=== PATIENT | female | born 1965 | race Caucasian/White ===

== ENCOUNTER 2020-05-02 12:47 | Observation (INO) | payer MEDICARE, SELFPAY ==
[2020-05-02] MEDS ORDERED: Nitroglycerin 50 MG/250 ML BOT 0 ML ONE ×2 (13:07→13:29)
[2020-05-02 13:24] LABS: #Eosinphils 0.1 thou/uL (0.0-0.7); #Lymphocytes 1.2 thou/uL (1.20-3.40); #Monocytes 0.3 thou/uL (0.11-0.59); #Neutrophils 7.4 thou/uL (1.40-6.50); %Basophils 0.3 % (0.0-1.0); %Eosinophils 0.6 % (0.0-10.0); %Lymphocytes 13.7 % (21.0-51.0); %Monocytes 3.8 % (0.0-10.0); %Neutrophils 81.7 % (42.0-75.0); Hemoglobin 12.4 g/dL (12.0-16.0); Mean Corpuscular HGB CONC 32.7 g/dL (32.0-36.0); Mean Corpuscular Hemoglobin 31.1 pg (27.0-31.0); Mean Corpuscular Volume 95.2 fL (78.0-98.0); Mean Platelet Volume 8.4 fL (7.4-10.4); Platelet Count 230 thou/uL (130-400); RBC Distribution Width 14.8 % (11.5-14.5); Red Blood Cell (RBC) Count 3.98 mill/uL (4.20-5.40); White Blood Cell (WBC) Count 9.1 thou/uL (4.8-10.8)
--- NOTE | 2020-05-02 13:29 | RAD ---
Exam: Chest one view HISTORY:Chest pain, radiating to left arm. Comparison: None FINDINGS: Cardiac silhouette:Cardiomegaly. Aorta: Unremarkable Pulmonary vessels: Normal Costophrenic angles: Clear LUNGS: No masses or consolidation. Lungs are hyperinflated. Chronic lung parenchymal changes are susp ected. Pneumothorax: None Osseous abnormalities: None IMPRESSION: 1. Hyperinflation with what are presumed to be chronic lung parenchymal changes. Additional imaging i f clinically warranted.
[2020-05-02] MEDS ORDERED: Morphine 4 MG/ML VIAL ONE (13:41)
[2020-05-02 13:52] LABS: ALT (SGPT) 9 U/L (8-55); AST (SGOT) 16 U/L (5-34); Albumin 4.1 g/dL (3.5-5.0); Alkaline Phosphatase 119 U/L (40-110); Anion Gap 19 mmol/L (10-20); BUN (Urea Nitrogen) 11 mg/dL (9.8-20.1); Bilirubin, Total 0.3 mg/dL (0.2-1.2); Calc. Creatinine Clearance 0 mL/min (70-130); Calcium 9.6 mg/dL (7.8-10.44); Carbon Dioxide 17 mmol/L (22-29); Chloride 104 mmol/L (98-107); Estimated GFR-MDRD 86; Globulin 3.5 g/dL (2.4-3.5); Glucose 102 mg/dL (70-105); Lipase 10 U/L (8-78); Potassium 4.9 mmol/L (3.5-5.1); Protein, Total 7.6 g/dL (6.0-8.3); Sodium 135 mmol/L (136-145)
[2020-05-02] MEDS ORDERED: Metoclopramide HCl 10 MG/2 ML VIAL ONE (15:02)
[2020-05-02] MEDS ORDERED: diphenhydrAMINE 50 MG/ML VIAL ONE (15:02)
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
[2020-05-02] MEDS ORDERED: Nitroglycerin 0.4 MG TAB 1 EACH ONE (16:30)
[2020-05-02] MEDS ORDERED: Ketorolac Tromethamine 30 MG/ML VIAL ONE (16:30)
[2020-05-02] MEDS ORDERED: Senokot S 8.6-50 MG TAB PO PRN (16:50)
[2020-05-02] MEDS ORDERED: Ondansetron ODT 4 MG TAB PO PRN (16:50)
[2020-05-02] MEDS ORDERED: Acetaminophen 325 MG TAB PO PRN (16:50)
[2020-05-02] MEDS ORDERED: Ondansetron PF 4 MG/2 ML Vial IVP PRN (16:50)
[2020-05-02] MEDS ORDERED: Calcium Carbonate 500 MG ChewTAB PO PRN (16:50)
[2020-05-02] MEDS ORDERED: HYDROcodone/Acetaminophen 10/325 mg Tablet PO PRN (16:50)
[2020-05-02] MEDS ORDERED: Nitroglycerin 0.4 MG TAB (25 Tab Bottle) SL PRN (16:53)
[2020-05-02 16:56] LABS: Troponin I 0.017 ng/mL (< 0.028)
[2020-05-02 17:45] LABS: Magnesium 1.6 mg/dL (1.6-2.6); Phosphorus 3.5 mg/dL (2.3-4.7)
[2020-05-02] MEDS ORDERED: HYDROcodone/Acetaminophen 10/325 mg Tablet ONE (18:27)
[2020-05-02 19:32] LABS: Troponin I 0.014 ng/mL (< 0.028)
[2020-05-02 19:59] VITALS: BMI 32.0
[2020-05-02] MEDS ORDERED: Magnesium 2 GM/50 ML 2 GM in Premix Bag 1 BAG IVPB SCH (20:30)
[2020-05-02] MEDS: Gabapentin 300 MG CAP PO SCH (21:38)
[2020-05-02] MEDS ORDERED: diphenhydrAMINE 50 MG CAP PO SCH (21:45)
[2020-05-03] MEDS: HYDROcodone/Acetaminophen 10/325 mg Tablet PO PRN ×3 (00:44→12:31)
[2020-05-03 05:08] LABS: #Basophils 0.1 thou/uL (0.0-0.2); #Eosinphils 0.2 thou/uL (0.0-0.7); #Lymphocytes 1.9 thou/uL (1.20-3.40); #Monocytes 0.5 thou/uL (0.11-0.59); %Basophils 0.9 % (0.0-1.0); %Eosinophils 2.5 % (0.0-10.0); %Lymphocytes 24.9 % (21.0-51.0); %Monocytes 6.7 % (0.0-10.0); %Neutrophils 65.1 % (42.0-75.0); Hemoglobin 11.4 g/dL (12.0-16.0); Mean Corpuscular HGB CONC 30.7 g/dL (32.0-36.0); Mean Corpuscular Hemoglobin 29.2 pg (27.0-31.0); Mean Platelet Volume 8.7 fL (7.4-10.4); Platelet Count 219 thou/uL (130-400); Red Blood Cell (RBC) Count 3.91 mill/uL (4.20-5.40); White Blood Cell (WBC) Count 7.6 thou/uL (4.8-10.8)
--- NOTE | 2020-05-03 05:19 | PDOC.FM ---
- Subjective Subjective: Pt resting this AM in bed comfortably. No acute events overnight. States that she is still having a headache and chest pain. The tylenol and magnesium last night did not help with her headache. States that she has been worried all night about her daughter and her boyfriend's father who just had a recent AK. - Objective Vital Signs & Weight: Vital Signs (12 hours) Temp Pulse Resp BP BP Pulse Ox 05/03/20 04:53 97.8 F 73 16 178/79 H 95 05/03/20 00:44 65 125/65 05/02/20 21:26 80 16 124/60 05/02/20 19:46 97.8 F 17 L 72 H 176/80 H 96 Weight Weight 81.919 kg I&O: 05/01/20 05/02/20 05/03/20 06:59 06:59 06:59 Intake Total 480 Output Total 400 Balance 80 Result Diagrams: 05/03/20 04:57 05/03/20 04:57 Phys Exam - Physical Examination Constitutional: NAD HEENT: PERRLA Respiratory: no wheezing, no rales, no rhonchi Cardiovascular: RRR, no significant murmur, no rub Gastrointestinal: soft, non-tender, no distention Musculoskeletal: no edema, pulses present Neurological: non-focal, normal sensation Lymphatic: no nodes Psychiatric: normal affect, A&O x 3 Skin: no rash, normal turgor, cap refill <2 seconds Dx/Plan - Plan Plan: Patient is a 54 yo female who presents with chest pain and intractable headache: #Typical Chest pain, ACS rule out - Significant risk factors and known CAD with last [place] in 2018 - Heart score of 4 - Will place on telemetry monitoring - plan for cardiac stress test in AM, will hold home beta janell - TSH, Mag, Phos wnl - trend trop wnl (< 0.01--.017--.014) - lipid panel showed hypertriglyeridemia with TG 172 - 13 beats of vtach asymptomatic last night, 12 beats of PAT with HR in 160s -ekg ordered this AM #Intractable Migraine -s/p Benadryl, Reglan, Toradol in ED -will follow headache protocol, Magnesium 2g IVPB given -if still having headache next step in 125 mg Solumedrol IV x 1 dose #Chronic Pain -[facility] reviewed, patient appears to be receiving [place] 10 q6 hr supply as well as Valium and Tylenol #4 within past month -continue [place] 10/325 q6h prn for pain #HTN -continue home med Lisinopril -hold home Metoprolol for AM stress test #Hx of Diarrhea, Dark Stools -will need outpatient GI set up Code Status: FULL Diet: Heart Healthy, NPO at midnight VTE: Lovenox, SCDs PCP: OOT Dispo: Stable, admit to obs on telemetry. Plan for stress test this AM. Anti cipate LOS <48 hrs. Addendum - Attending - Attending Attestation Date/Time: 05/03/20 6710 I personally evaluated the patient and discussed the management with Dr. Mtz. I agree with the History, Examination, Assessment and Plan documented above with any addition or exceptions noted below.
[2020-05-03 05:30] LABS: ALT (SGPT) 10 U/L (8-55); AST (SGOT) 13 U/L (5-34); Albumin 3.9 g/dL (3.5-5.0); Alkaline Phosphatase 107 U/L (40-110); Anion Gap 13 mmol/L (10-20); BUN (Urea Nitrogen) 14 mg/dL (9.8-20.1); Bilirubin, Total 0.3 mg/dL (0.2-1.2); Calc. Creatinine Clearance 119 mL/min (70-130); Calcium 9.3 mg/dL (7.8-10.44); Carbon Dioxide 20 mmol/L (22-29); Cardiac Risk 5.7 (Less than 4.5); Chloride 107 mmol/L (98-107); Cholesterol 165 mg/dl (< 200 Desired); Estimated GFR-MDRD 86; Glucose 91 mg/dL (70-105); HDL Cholesterol 29 mg/dL (>60 Neg Risk); LDL Cholesterol, Calculated 102 mg/dL; Potassium 4.4 mmol/L (3.5-5.1); Protein, Total 6.9 g/dL (6.0-8.3); Sodium 136 mmol/L (136-145); Triglycerides 172 mg/dL (Less than 150)
[2020-05-03] MEDS ORDERED: Enoxaparin Sodium 40 MG/0.4 ML SYRINGE SC SCH (09:00)
[2020-05-03] MEDS ORDERED: Lisinopril 20 MG TAB PO SCH (09:00)
[2020-05-03] MEDS ORDERED: methylPREDNISolone Sod Succ/PF 125 MG/2 ML VIAL IVP SCH (09:15)
[2020-05-03] MEDS ORDERED: ADENOSINE 60 MG/20 ML VIAL ONE (09:19)
--- NOTE | 2020-05-03 10:46 | CT ---
CT BRAIN WITHOUT CONTRAST: HISTORY: Intractable migraine FINDINGS: No evidence of acute infarct, hemorrhage, midline shift or abnormal extra-axial fluid collections is seen. The ventricular size is appropriate and the basilar cisterns are patent. The bony calvarium is intact. Few foci of decreased attenuation in the periventricular white matter may either be due to chronic small vessel ischemic disease or migraine headaches. There is mucosal disease in the sphenoid sinuses. IMPRESSION: No CT evidence of acute intracranial process.
[2020-05-03] MEDS: Gabapentin 300 MG CAP PO SCH ×2 (11:21→15:14)
[2020-05-03] MEDS ORDERED: hydrOXYzine 25 MG TAB PO SCH ×2 (11:45→16:15)
--- NOTE | 2020-05-03 11:58 | NM ---
EXAM: CARDIAC SPECT HISTORY: Chest pain, coronary artery disease, [place], stent, CVA, hypertension, smoker TECHNIQUE: A myocardial perfusion scan was performed using the single isotope 1 day protocol with emilie hnetium 99m sestamibi. [10 mCi] was injected intravenously for the rest exam followed by 32 mCifor the stress study. Pharmacologic stress with adenosine was monitored and interpreted by Dr. Trent FINDINGS: There are small fixed defects in the distal anteroseptal wall and the inferior wall. No rev ersible defects are seen. Gated SPECT LVEF: 65% Wall motion exam: No significant wall motion abnormalities are seen. IMPRESSION: No evidence of reversible ischemia.
[2020-05-03 12:18] VITALS: TEMP 98.7
[2020-05-03] MEDS ORDERED: Metoprolol Tartrate 50 MG TAB PO SCH (14:30)
[2020-05-03 16:07] VITALS: BP 162/78
[2020-05-03] MEDS ORDERED: Atorvastatin Calcium 40 MG TAB PO SCH (21:00)
[2020-05-04] MEDS ORDERED: Aspirin 81 mg Enteric Coated Tablet PO SCH (09:00)
--- NOTE | 2020-05-05 03:51 | DIS ---
DATE OF ADMISSION: 05/02/2020 DATE OF DISCHARGE: 05/03/2020 ADMITTING ATTENDING: Young French MD DISCHARGE ATTENDING: Young French MD. CONSULTS: None. PROCEDURES: Chest x-ray done on 05/02, showed hyperinflation with what is presumed to be chronic lung parenchymal changes. Additional imaging clinically warranted. Cardiac stress test on 05/03, showed no evidence of reversible ischemia. Left ventricular ejection fraction is 65%. Wall motion exam, no significant wall motion abnormalities were seen. CT brain without contrast showed no evidence of acute intracranial process, done on 05/03. PRIMARY DIAGNOSES: 1. Atypical chest pain. 2. Intractable migraine. SECONDARY DIAGNOSES: 1. Chronic pain. 2. Hypertension. 3. Chronic diarrhea. DISCHARGE MEDICATIONS: 1. Hydrocodone/acetaminophen 10/325. 2. Gabapentin 300 mg p.o. t.i.d. 3. Lisinopril 20 mg b.i.d. 4. Benadryl 50 mg. 5. Valium 1 mg p.o. b.i.d. 6. Zantac 150 mg p.o. daily. 7. Metoprolol succinate 50 mg p.o. daily. 8. Calcium carbonate 1000 mg p.o. q.4. 9. Aspirin 81 mg. 10. Lipitor 40 mg. 11. Hydroxyzine 25 mg p.o. t.i.d. Discontinued medications: none. HPI/HOSPITAL COURSE: The patient is a 54-year-old female with a past medical history of CAD and hypertension, who presented with chest pain. She states that the pain started in the morning of admission for a duration of 4 to 5 hours. It was in the left side of her chest and radiated down her left arm. She felt as if this was a similar sensation to her prior heart attacks. She has had stent placement in 2018. The pain was initially accompanied by shortness of breath and nausea. No vomiting. She was having diarrhea; however, this is a chronic condition for her. The patient was also complaining of a headache that started a few days prior to admission. This had not improved since she had been in the emergency department. She received Benadryl, Reglan, and Toradol. She also stated that she went to an urgent care 2 weeks ago to get her COVID test done, and her symptoms were negative. The patient's hospital stay was largely unremarkable. Due to the patient having a heart score of 4, she was placed on telemetry overnight, and a stress test was ordered the following morning. Fasting lipid panel, TSH, magnesium, and phosphorus were ordered, and these were all within normal limits. The stress test was done with the results as above. Due to the patient's intractable migraine that proceeded to bother the patient the following morning, a CT of her head was done, and the findings were as above. She was given Benadryl, Reglan, and Toradol for her headache as well as magnesium. She was also given Solu-Medrol for her symptoms. It was determined that the patient needed to follow up with a concrete bucket hooker as an outpatient and needed to established care with a PCP close to her home. DISPOSITION: Stable. DISCHARGE INSTRUCTIONS: LOCATION: Home. DIET: Heart healthy. ACTIVITY: As tolerated. FOLLOWUP: Established with primary care physician within 1 to 2 weeks and follow up with an outpatient concrete bucket hooker. Job ID: [id number] MTDD
== END 2020-05-03 16:23 | disposition home or self-care (01) ==
LOC: ERS 12:47 → 2SW 16:07
PROVIDERS: ADMIT Family Medicine; ATTEND Family Medicine
DX: R07.89 Other chest pain (principal); G43.019 Migraine without aura, intractable, without status migrainosus; G89.29 Other chronic pain; I10 Essential (primary) hypertension; K52.9 Noninfective gastroenteritis and colitis, unspecified; I25.10 Atherosclerotic heart disease of native coronary artery without angina pectoris; I25.2 Old myocardial infarction; G62.9 Polyneuropathy, unspecified; F17.210 Nicotine dependence, cigarettes, uncomplicated; I69.334 Monoplegia of upper limb following cerebral infarction affecting left non-dominant side; F41.9 Anxiety disorder, unspecified; Z79.899 Other long term (current) drug therapy; Z88.5 Allergy status to narcotic agent; Z95.5 Presence of coronary angioplasty implant and graft
CPT/HCPCS: 70450; 71045; 78452; 80053; 80061; 83690; 83735; 84100; 84484 ×2; 85025; 93005; 93017; 96374; 96375; 99285; A9500; 36415; 84443; 96365; G0378; J0153; J1200; J1885; J2270; J2765; J2930; J3475; Q0163